=== PATIENT | female | born 1990 | race Caucasian/White ===

== ENCOUNTER 2023-09-13 08:12 | Emergency (ER) | payer OTHER, SELFPAY ==
[2023-09-13 08:19] VITALS: BP 134/93; PULSE 68; RESP 20; TEMP 36.6; O2SAT 100
--- NOTE | 2023-09-13 08:23 | ED.URI ---
HPI - URI/Sore Throat General Chief Complaint: Upper Respiratory Infection Stated Complaint: Sore Throat Time Seen by Provider: 09/13/23 08:23 Related Data Home Medications Medication Instructions Recorded Confirmed dicyclomine 20 mg tablet 20 mg PO DAILY 09/13/23 09/13/23 fluoxetine 40 mg capsule 40 mg PO DAILY 09/13/23 09/13/23 hydroxyzine HCl 10 mg tablet 10 mg PO QID PRN Anxiety 09/13/23 09/13/23 omeprazole 40 mg capsule,delayed 40 mg PO DAILY 09/13/23 09/13/23 release propranolol 10 mg tablet 10 mg PO TID PRN Anxiety 09/13/23 09/13/23 Allergies Allergy/AdvReac Type Severity Reaction Status Date / Time metoclopramide Allergy Unknown muscle Verified 09/13/23 08:45 spasms Discharge Plan Discharge Prescriptions: No Action fluoxetine 40 mg capsule 40 mg PO DAILY omeprazole 40 mg capsule,delayed release(DR/EC) 40 mg PO DAILY propranolol 10 mg tablet 10 mg PO TID PRN (Reason: Anxiety) dicyclomine 20 mg tablet 20 mg PO DAILY hydroxyzine HCl 10 mg tablet 10 mg PO QID PRN (Reason: Anxiety) Follow-up/Referrals: PHYSICIAN NOT ON STAFF,NONSTAFF [Primary Care Provider] -
--- NOTE | 2023-09-13 08:52 | ED.URI ---
HPI - URI/Sore Throat General Chief Complaint: Upper Respiratory Infection Stated Complaint: Sore Throat Time Seen by Provider: 09/13/23 08:23 Source: patient, RN notes reviewed and old records reviewed Mode of arrival: ambulatory Limitations: no limitations History of Present Illness HPI Narrative: 32-year-old female to [facility] for complaint of sore throat, productive cough with green sputum, chills, body aches for 4 days. Patient endorsing subjective fever as well. Patient denies nausea, vomiting, diarrhea, dizziness, shortness of breath, chest pain. Respirations even and nonlabored. Patient in no acute distress. Related Data Home Medications Medication Instructions Recorded Confirmed dicyclomine 20 mg tablet 20 mg PO DAILY 09/13/23 09/13/23 fluoxetine 40 mg capsule 40 mg PO DAILY 09/13/23 09/13/23 hydroxyzine HCl 10 mg tablet 10 mg PO QID PRN Anxiety 09/13/23 09/13/23 omeprazole 40 mg capsule,delayed 40 mg PO DAILY 09/13/23 09/13/23 release propranolol 10 mg tablet 10 mg PO TID PRN Anxiety 09/13/23 09/13/23 Allergies Allergy/AdvReac Type Severity Reaction Status Date / Time metoclopramide Allergy Unknown muscle Verified 09/13/23 08:45 spasms Review of Systems Review of Systems: All systems reviewed & are unremarkable except as noted in HPI and below Constitutional: Constitutional: Reports as per HPI, Reports body ache(s), Reports chills, Reports fever(s) ( Subjective) and Reports night sweats Eyes: Eyes: Reports no additional eye complaints ENT: Reports as per HPI, Reports nasal congestion, Reports nasal discharge and Reports sore throat Cardiovascular: Cardiovascular: Reports no additional cardiovascular complaints, Denies chest pain and Denies dyspnea Respiratory: Respiratory: Reports no additional respiratory complaints, Reports cough and Denies dyspnea Musculoskeletal: Musculoskeletal: Reports no additional musculoskeletal complaints Neurologic: Reports system reviewed and no additional complaints, except as documented Psychiatric: Psychiatric: Reports no additional psychiatric complaints PMFSH Comments At the time of my signature, I reviewed and agree with the nursing past medical, surgical, social, and family history. There is no relevant family history pertinent to the patient complaint. Exam Const: General: cooperative, comfortable, no acute distress, alert, tired appearing and well nourished Nutritional Appearance: well nourished Orientation/consciousness: patient oriented x3 Limitations: no limitations HENMT: Head: normal to inspection Ears: Abnormal EAC present excessive cerumen on the left Face/Nose/Sinus: Normal external nose present, Normal nares present, normal facial exam, No erythema and No edema Face and sinus: normal facial exam, no erythema and no edema Mouth: Yes Normal oral and palatal mucosa present Throat: posterior oropharynx abnormal erythema and postnasal drainage Eyes: General: appearance normal, both eyes and all related structures Neck: Neck: normal visual inspection, full ROM and no meningeal signs Lymphatic: no lymphadenopathy noted and no lymphedema noted Chest: Chest palpation & inspection: normal inspection of the chest Resp: Effort & Inspection: normal respiratory effort and able to speak in complete sentences Auscultation: clear to auscultation bilaterally Cardio: Jugular venous distension: no JVD Rate: regular rate Rhythm: regular rhythm Back/Spine/Pelvis: Cervical Spine: cervical ROM normal Skin: General skin exam: normal color, no rashes or lesions noted and turgor normal Neuro: General: patient oriented x3, gait normal, moves all extremities and no meningeal signs Speech: normal speech Gait exam (Neuro): Normal gait present Extrem: General: normal to inspection, full ROM and capillary refill normal Psych: Appearance: grossly normal and well kempt Course Course Emergency Course: Some parts of this dictation were generated
== END 2023-09-13 09:00 | disposition home or self-care (01) ==
PROVIDERS: Emergency Provider Nurse Practitioner Family
DX: J06.9 Acute upper respiratory infection, unspecified (principal); K21.9 Gastro-esophageal reflux disease without esophagitis; F41.9 Anxiety disorder, unspecified; F32.A Depression, unspecified
CPT/HCPCS: 87081; 87880; 99203; G0463